=== PATIENT | female | born 2000 | race American Indian/Alaskan Native ===

== ENCOUNTER 2021-08-18 11:25 | Emergency (ER) | payer SELFPAY ==
[2021-08-18 12:40] VITALS: BP 125/78
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
[2021-08-18 14:06] LABS: HCG Qualitative,Urine Negative (Negative)
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
== END 2021-08-18 15:12 | disposition home or self-care (01) ==
LOC: ED 11:25
DX: M54.41 Lumbago with sciatica, right side (principal)
CPT/HCPCS: 72100; 81025; 99283